=== PATIENT | male | born 1970 | race Caucasian/White ===

== ENCOUNTER 2016-05-24 15:53 | Emergency (ER) | payer MEDICAID ==
[~2016-05-24] VITALS: Ht 188 cm; Wt 106.6 kg
[2016-05-24] MEDS ORDERED: LISINOPRIL 10MG10 MG PO (16:05)
[2016-05-24 16:13] LABS: URINE BILIRUBIN - DIPSTICK NEGATIVE (NEG)
[2016-05-24 16:14] LABS: URINE BLOOD TRACE (NEG)
--- NOTE | 2016-05-24 16:22 | Urgent Treatment Center Report ---
History of Present Issue Date/Time Seen by Provider 05/24/16 1609 Visit Reason Pt arrived:Walked Presenting Problem:PATIENT STATES HE HAS LOWER BACK PAIN ON BOTH SIDES. STATES HE FEELS IT IS HIS KIDNEYS. DENIES BACK INJURY Location if Accident: Onset of symptoms date/time:/ or onset unknown for:MEDICAL HX UNKNOWN Have you (or family members/close friends) recently traveled outside the [place]? N If Yes, where/when: Have you had exposure to infectious disease within the past month? TB? Other? Specify: Patient states that he has been having pain in his lower back on both sides on and off since Apr and thinks he either has a kidney infection or a kidney stone. States that he has not done anything to hurt his back and the pain is like an achy colicky pain just over top of the kidney area ALLERGIES Coded Allergies: No Known Allergies (05/24/16) Home Medications Reported Medications LISINOPRIL (Lisinopril) 10 MG PO DAILY History Medical History General Hypertension? No Immunization HX DT/Tetanus 5-10 Years Ago Surgical Hx Previous Surgery?Y DEVIATED SEPTUM Social History Smoking Hx Smoker: Current Every Day Smoker Tobacco: Yes Type Chew Alcohol Alcohol: No Review of Systems All Other Systems Reviewed and Negative Genitourinary frequency. Musculoskeletal back pain Physical Exam Vital Signs Vital Signs Date Time Temp Pulse Resp B/P Pulse O2 O2 Flow FiO2 Ox Delivery Rate 05/24 1601 98.2 85 20 137/101 98 General Appearance normal appearance, WD/WN, no apparent distress Respiratory Status Yes: trachea midline, chest symmetrical, non tender chest. No: respiratory distress. 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 No Results/Orders Laboratory Tests 05/24/16 1611: Urine Color YELLOW, Urine Appearance Clear, Urine pH 6.0, Ur Specific [place] 1.030, Urine Protein NEGATIVE, Urine Ketones NEGATIVE, Urine Blood TRACE H, Urine Nitrate NEGATIVE, Urine Bilirubin NEGATIVE, Urine Urobilinogen 0.2, Ur Leukocyte Esterase NEGATIVE, Urine Glucose NEGATIVE Orders Procedure Date/time Status DIET-NOTHING BY MOUTH 05/24 D Active [facility] URINE DIPSTICK 05/24 1611 Complete Progress [facility] Progress Notes Date 05/24/16 Time 1656 Comment Patient now refusing to have the CT of Abdomen Pelvis with stone protocol, states that he cannot stay and his pain has stopped, advised patient of risks associated with kidney stones that could block or go untreated and that he had blood in his urine. Verbalized understanding of risks to both nurse and provider Departure Departure Time of Disposition 1700 Disposition DC Home or Self Care(routine) Clinical Impression Primary Impression: Low back pain Qualifiers: Chronicity: unspecified Back pain laterality: bilateral Sciatica presence: without sciatica Qualified Code: M54.5 - Low back pain Condition STABLE Patient Instructions DI for Low Back Pain Additional Instructions Find Family doctor in list provided and follow up [facility] Over the counter Motrin for pain Return if needed Discharge Counseling Counseled pt/family regarding diagnosis, home care, follow up needs Comments Patient given list of physicians accepting patients at 1702
--- NOTE | 2016-05-24 16:22 | Urgent Treatment Center Report ---
History of Present Issue Date/Time Seen by Provider 05/24/16 1609 Visit Reason Pt arrived:Walked Presenting Problem:PATIENT STATES HE HAS LOWER BACK PAIN ON BOTH SIDES. STATES HE FEELS IT IS HIS KIDNEYS. DENIES BACK INJURY Location if Accident: Onset of symptoms date/time:/ or onset unknown for:MEDICAL HX UNKNOWN Have you (or family members/close friends) recently traveled outside the [place]? N If Yes, where/when: Have you had exposure to infectious disease within the past month? TB? Other? Specify: Patient states that he has been having pain in his lower back on both sides on and off since Apr and thinks he either has a kidney infection or a kidney stone. States that he has not done anything to hurt his back and the pain is like an achy colicky pain just over top of the kidney area ALLERGIES Coded Allergies: No Known Allergies (05/24/16) Home Medications Reported Medications LISINOPRIL (Lisinopril) 10 MG PO DAILY History Medical History General Hypertension? No Immunization HX DT/Tetanus 5-10 Years Ago Surgical Hx Previous Surgery?Y DEVIATED SEPTUM Social History Smoking Hx Smoker: Current Every Day Smoker Tobacco: Yes Type Chew Alcohol Alcohol: No Review of Systems All Other Systems Reviewed and Negative Genitourinary frequency. Musculoskeletal back pain Physical Exam Vital Signs Vital Signs Date Time Temp Pulse Resp B/P Pulse O2 O2 Flow FiO2 Ox Delivery Rate 05/24 1601 98.2 85 20 137/101 98 General Appearance normal appearance, WD/WN, no apparent distress Respiratory Status Yes: trachea midline, chest symmetrical, non tender chest. No: respiratory distress. 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 No Results/Orders Laboratory Tests 05/24/16 1611: Urine Color YELLOW, Urine Appearance Clear, Urine pH 6.0, Ur Specific [place] 1.030, Urine Protein NEGATIVE, Urine Ketones NEGATIVE, Urine Blood TRACE H, Urine Nitrate NEGATIVE, Urine Bilirubin NEGATIVE, Urine Urobilinogen 0.2, Ur Leukocyte Esterase NEGATIVE, Urine Glucose NEGATIVE Orders Procedure Date/time Status DIET-NOTHING BY MOUTH 05/24 D Active [facility] URINE DIPSTICK 05/24 1611 Complete Progress [facility] Progress Notes Date 05/24/16 Time 1656 Comment Patient now refusing to have the CT of Abdomen Pelvis with stone protocol, states that he cannot stay and his pain has stopped, advised patient of risks associated with kidney stones that could block or go untreated and that he had blood in his urine. Verbalized understanding of risks to both nurse and provider Departure Departure Time of Disposition 1700 Disposition DC Home or Self Care(routine) Clinical Impression Primary Impression: Low back pain Qualifiers: Chronicity: unspecified Back pain laterality: bilateral Sciatica presence: without sciatica Qualified Code: M54.5 - Low back pain Condition STABLE Patient Instructions DI for Low Back Pain Additional Instructions Find Family doctor in list provided and follow up [facility] Over the counter Motrin for pain Return if needed Discharge Counseling Counseled pt/family regarding diagnosis, home care, follow up needs Comments Patient given list of physicians accepting patients at 1702
[2016-05-24 17:04] VITALS: BP 137/101
== END 2016-05-24 17:05 | disposition home or self-care (01) ==
LOC: UTC 15:53
PROVIDERS: Nurse Practitioner
DX: M54.5 Low back pain (principal); I10 Essential (primary) hypertension